=== PATIENT | male | born 1970 | race Caucasian/White ===

== ENCOUNTER → 2023-07-22 07:17 | Outpatient (REF) | payer OTHER, SELFPAY | LOC: DHCBS MAIN 07:17 | PROVIDERS: ATTENDING PHYSICIAN Internal Medicine Interventional Cardiology | DX: I48.91 Unspecified atrial fibrillation (principal); I10 Essential (primary) hypertension; E78.2 Mixed hyperlipidemia; E11.9 Type 2 diabetes mellitus without complications | CPT/HCPCS: 93306 ==